=== PATIENT | female | born 1980 | race American Indian/Alaskan Native ===

== ENCOUNTER 2018-06-06 18:08 | Inpatient (IN) | payer BC, MEDICAID ==
--- NOTE | 2018-06-06 18:36 | C.PDOC ---
History Of Present Illness 37 y/o female presents to the ER for evaluation of complete facial numbness and tingling sensation in the left upper and lower extremities which occurred when she woke up at 2 am today. Patient states that she was walking towards her left side. She went back to sleep, woke up again, and the symptoms resolved. She reports that this is the first time she had these symptoms. She went to see her PMD at [facility] and they recommended that she come to the ER. She notes that she has been experiencing a mild headache for about the past 1 hour. Otherwise, she denies having sudden onset of headache, worst headache of life, slurred speech, and weakness. Of note, patient has history of pre- eclampsia which resolved after her . Time Seen by Provider: 06/06/18 18:35 Chief Complaint (Nursing): Weakness/Neurological Deficit History Per: Patient History/Exam Limitations: no limitations Onset/Duration Of Symptoms: Hrs Current Symptoms Are (Timing): Still Present Severity: Moderate Past Medical History Reviewed: Historical Data, Nursing Documentation, Vital Signs Vital Signs: Last Vital Signs Temp 97.9 F 06/06/18 23:50 Pulse 62 06/06/18 23:50 Resp 20 06/06/18 23:50 BP 109/64 06/06/18 23:50 Pulse Ox 96 06/06/18 23:50 - Medical History PMH: No Chronic Diseases Other Surgeries: Hx of surgeries - [facility] Procedures BILAT TUBAL DESTRUCT NEC (03/12/14) Family History: States: No Known Family Hx - Social History Hx Alcohol Use: No Hx Substance Use: No - Immunization History Hx Tetanus Toxoid Vaccination: Yes Hx Influenza Vaccination: No Hx Pneumococcal Vaccination: No Review Of Systems Except As Marked, All Systems Reviewed And Found Negative. Constitutional: Negative for: Fever, Chills Gastrointestinal: Negative for: Nausea, Vomiting Neurological: Positive for: Headache. Negative for: Weakness Physical Exam - Physical Exam Appears: Non-toxic, No Acute Distress Skin: Normal Color, Warm, Dry Head: Atraumatic, Normacephalic Eye(s): bilateral: Normal Inspection Nose: Normal Oral Mucosa: Moist Neck: Supple Chest: Symmetrical Cardiovascular: Rhythm Regular Respiratory: Normal Breath Sounds, No Rales, No Rhonchi, No Wheezing Gastrointestinal/Abdominal: Normal Exam, Soft, No Tenderness, No Guarding, No Rebound Neurological/Psych: Oriented x3, Normal Speech ED Course And Treatment - Laboratory Results Result Diagrams: 06/06/18 18:39 06/06/18 18:39 O2 Sat by Pulse Oximetry: 99 (RA) Pulse Ox Interpretation: Normal NIHSS Stroke Scale 2 - How Severe is the Stroke Level of Consciousness: 0=Alert LOC to Questions: 0=Both comments correct LOC to commands: 0=Obeys both correctly Best Gaze: 0=Normal Visual: 0=No visual loss Facial: 0=Normal Motor Arm - Left: 0=No drift Motor Arm - Right: 0=No drift Motor Leg - Left: 0=No drift Motor Leg - Right: 0=No drift Limb Ataxia: 0=Absent Sensory: 0=Normal Best Language: 0=No aphasia Dysarthia: 0=Normal articulation Extinction & Inattention (Neglect): 0=Normal, no object Score: 0 rTPA Inclusion/Exclusion - Inclusion Criteria for Altepase Patient is 18 years or Older: Yes The Clinical Diagnosis of Ischemic Stroke That is Causing a Potentially Disabling Neurological Deficit: No Time of Onset is Well Established to be Less Than 270 Minute Before Treatment Would Begin: No Risk/Benefit Discussed With Patient/Family Member Present: Yes Medical Decision Making Medical Decision Making: Code stroke called by earlier team given sent by PMD for stroke w/u. I evaluated pt and found that symptoms had fully resolved. Likely TIA. Plan: --Labs --ECG --CT- Head --CXR --Aspirin PO --Reglan IV --IV Fluids Updates: Case discussed with , neurologist, who is requesting an order for MRI - Brain for tomorrow. Case also discussed with Dr. Bustillo who accepts admission and reccomends ASA. ASA ordered. Disposition - Disposition Disposition: HOSPITALIZED Disposition Time: 22:45 Condition: GOOD - Clinical Impression Clinical Impression: Stroke-like symptoms - Scribe Statement The provider has reviewed the documentation as recorded by the Laurel Hernandez Provider Attestation: All medical record entries made by the Seferinoibhalle were at my direction and personally dictated by me. I have reviewed the chart and agree that the record accurately reflects my personal performance of the history, physical exam, medical decision making, and the department course for this patient. I have also personally directed, reviewed, and agree with the discharge instructions and disposition.
[2018-06-06 18:46] LABS: BASO % 0.6 % (0.0-2.0); EOS % 0.5 % (0.0-4.0); HEMOGLOBIN 11.8 g/dL (11.0-16.0); LYMPH # 2.3 K/uL (1.0-4.3); LYMPH % 51.4 % (20.0-40.0); MEAN CELL VOLUME 87.9 fL (81.0-99.0); MEAN CORPUSCULAR HEMOGLOBIN 29.3 pg (27.0-31.0); MEAN CORPUSCULAR HGB CONC 33.4 g/dL (33.0-37.0); MEAN PLATELET VOLUME 8.8 fL (7.2-11.7); MONO # 0.5 K/uL (0.0-0.8); MONO % 10.7 % (0.0-10.0); NEUT # 1.7 K/uL (1.8-7.0); NEUT % 36.8 % (50.0-75.0); NRBC % 0.1 % (0.0-2.0); RBC 4.04 Mil/uL (3.80-5.20); WHITE BLOOD COUNT 4.5 K/uL (4.8-10.8)
[2018-06-06 19:00] LABS: ALB/GLOB RATIO 1.3 (1.0-2.1); ALBUMIN 4.5 g/dL (3.5-5.0); ALT/SGPT 22 U/L (9-52); AST/SGOT 20 U/L (14-36); BLOOD UREA NITROGEN 9 mg/dL (7-17); GFR NON-AFRICAN AMERICAN > 60; HDL CHOLESTEROL 98 mg/dL (30-70)
[2018-06-06 19:10] LABS: LDL CHOLESTEROL 105 mg/dL (0-129)
[2018-06-06] MEDS ORDERED: Sodium Chloride 0.9% 1,000 ML ONE (20:11)
[2018-06-06] MEDS: Sodium Chloride 0.9% 1,000 ML IV SCH (20:17)
[2018-06-07 01:01] VITALS: RESP 20
[2018-06-07] MEDS: Sodium Chloride 0.9% 1,000 ML IV SCH (05:29)
--- NOTE | 2018-06-07 07:05 | CT ---
Date of service: 06/06/2018 PROCEDURE: CT HEAD WITHOUT CONTRAST. HISTORY: Code Stroke COMPARISON: None available. TECHNIQUE: Axial computed tomography images were obtained through the head/brain without intravenous contrast. Radiation dose: Total exam DLP = 948 mGy-cm. This CT exam was performed using one or more of the following dose reduction techniques: Automated exposure control, adjustment of the mA and/or kV according to patient size, and/or use of iterative reconstruction technique. FINDINGS: HEMORRHAGE: No intracranial hemorrhage. BRAIN: No mass effect or edema. No atrophy or chronic microvascular ischemic changes. Punctate hypodensity in the left basal ganglia on series 4, image 18 may represent a prominent perivascular space. VENTRICLES: Unremarkable. No hydrocephalus. CALVARIUM: Unremarkable. PARANASAL SINUSES: Unremarkable as visualized. No significant inflammatory changes. MASTOID AIR CELLS: Unremarkable as visualized. No inflammatory changes. OTHER FINDINGS: None. IMPRESSION: No acute intracranial hemorrhage. Punctate hypodensity in the left basal ganglia on series 4, image 18 may represent a prominent perivascular space. If symptoms persists, consider correlation with MRI. These findings were preliminarily reported at 6:52 p.m. on 06/06/[address] Macho Fuchs from [facility].
[2018-06-07 08:16] VITALS: O2SAT 100
--- NOTE | 2018-06-07 08:54 | RAD ---
Date of service: 06/06/2018 HISTORY: Code Stroke COMPARISON: No prior. FINDINGS: LUNGS: The lungs are well inflated and clear. PLEURA: No significant pleural effusion identified, no pneumothorax apparent. CARDIOVASCULAR: Normal. OSSEOUS STRUCTURES: No significant abnormalities. VISUALIZED UPPER ABDOMEN: Normal. OTHER FINDINGS: None. IMPRESSION: No active pulmonary disease.
--- NOTE | 2018-06-07 09:57 | MRI ---
Date of service: 06/07/2018 PROCEDURE: MRI BRAIN WITHOUT CONTRAST HISTORY: TIA w/u COMPARISON: Noncontrast head CT from 06/06/2018. TECHNIQUE: Multiplanar, multisequence MR images of the brain were obtained without intravenous contrast enhancement. FINDINGS: HEMORRHAGE: None DWI: No evidence of an acute or early subacute infarction. BRAIN PARENCHYMA: There is an old lacunar infarction in the right cerebellar hemisphere. There is an ovoid T2/FLAIR hyperintense foci in the right frontal deep white matter. There are few T2/FLAIR hyperintense foci in the left paramedian cerebellar hemisphere. There is no mass, mass effect or abnormal extra-axial fluid collection. The midline sagittal structures are normal VENTRICLES: There is mild age advanced global parenchymal volume loss and proportionate enlargement of the ventricles and cortical sulci. CRANIUM: There is normal bone marrow signal pattern. ORBITS: Grossly unremarkable. PARANASAL SINUSES/MASTOIDS: Mild mucosal thickening in the paranasal sinuses and trace mastoid effusions the VASCULAR SYSTEM: There are normal signal voids in the larger intracranial arteries. OTHER FINDINGS: None. IMPRESSION: 1. No acute intracranial abnormality. Specifically, no evidence for acute infarction. 2. 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 3. Scattered foci of presumable gliosis in the right deep frontal white matter and left paramedian cerebellar hemisphere.
--- NOTE | 2018-06-07 11:04 | CARD ---
APPROVED REPORT Date of service: 06/06/2018 EKG Measurement Heart [id number] <Conclusion> Normal sinus rhythm Nonspecific T wave abnormality Abnormal ECG
--- NOTE | 2018-06-07 11:06 | CP.PCM.HP ---
History of Present Illness - History of Present Illness History of Present Illness: 37 Y OLD F WAKE UP IN MIDLE OF NIGHT FEELING NUMNESS FACE LSIDE AND UPPER EXT STILL HAS NUMNESS MRI DON OLD INFARCTION Present on Admission - Present on Admission Any Indicators Present on Admission: No Review of Systems - Review of Systems Systems not reviewed;Unavailable: Acuity of Condition - Constitutional Constitutional: As Per HPI - EENT Eyes: As Per HPI Ears: As Per HPI Nose/Mouth/Throat: As Per HPI - Breasts Breasts: As Per HPI - Cardiovascular Cardiovascular: As Per HPI - Respiratory Respiratory: As Per HPI - Gastrointestinal Gastrointestinal: As Per HPI - Genitourinary Genitourinary: As Per HPI - Reproductive: Female Reproductive:Female: As Per HPI - Menstruation Menstruation: As Per HPI - Musculoskeletal Musculoskeletal: As Per HPI - Integumentary Integumentary: As Per HPI - Neurological Neurological: Numbness Additional comments: LSIDE FACE AND UPPER EXT - Psychiatric Psychiatric: As Per HPI - Endocrine Endocrine: As Per HPI - Hematologic/Lymphatic Hematologic: As Per HPI Past Patient History - Past Medical History & Family History Past Medical History?: Yes - Past Social History Smoking Status: Never Smoked - CARDIAC Other/Comment: PREECLAMPSIA - RENAL Other/Comment: ACUTE KIDNEY DISEASE - MUSCULOSKELETAL/RHEUMATOLOGICAL Hx Falls: No - PSYCHIATRIC Hx Substance Use: No - SURGICAL HISTORY Hx Surgeries: Yes Hx Tubal Ligation: Yes Other/Comment: FIBROID REMOVAL - ANESTHESIA Hx Anesthesia: Yes Hx Anesthesia Reactions: No Hx Malignant Hyperthermia: No Meds Allergies/Adverse Reactions: Allergies Allergy/AdvReac Type Severity Reaction Status Date / Time Penicillins Allergy Verified 06/06/18 18:22 Physical Exam - Constitutional Appears: No Acute Distress - Head Exam Head Exam: ATRAUMATIC - Eye Exam Eye Exam: Normal appearance - ENT Exam ENT Exam: Mucous Membranes Moist - Respiratory Exam Respiratory Exam: Clear to Auscultation Bilateral - Cardiovascular Exam Cardiovascular Exam: REGULAR RHYTHM - GI/Abdominal Exam GI & Abdominal Exam: Normal Bowel Sounds - Extremities Exam Extremities exam: Positive for: normal inspection - Back Exam Back exam: NORMAL INSPECTION - Neurological Exam Neurological exam: Alert, Oriented x3 Additional comments: DEC SENSATION L SIDE FACE AND UPPER EXT - Psychiatric Exam Psychiatric exam: Normal Mood - Skin Skin Exam: Normal Color Results - Vital Signs Recent Vital Signs: Last Vital Signs Temp 98.5 F 06/07/18 07:25 Pulse 66 06/07/18 09:00 Resp 20 06/07/18 07:25 BP 109/67 06/07/18 07:25 Pulse Ox 100 06/07/18 07:25 - Labs Result Diagrams: 06/06/18 18:39 06/06/18 18:39 Labs: Laboratory Results - last 24 hr 06/06/18 06/06/18 06/06/18 18:30 18:39 18:39 WBC 4.5 L RBC 4.04 Hgb 11.8 Hct 35.5 MCV 87.9 MCH 29.3 MCHC 33.4 RDW 15.0 H Plt Count 193 MPV 8.8 Neut % (Auto) 36.8 L Lymph % (Auto) 51.4 H Dod[place] % (Auto) 10.7 H Eos % (Auto) 0.5 Baso % (Auto) 0.6 Neut # (Auto) 1.7 L Lymph # (Auto) 2.3 [place] # (Auto) 0.5 Eos # (Auto) 0.0 Baso # (Auto) 0.0 PT 11.0 INR 1.0 APTT 34 Sodium Potassium Chloride Carbon Dioxide Anion Gap BUN Creatinine Est GFR ( Amer) Est GFR (Non-Af Amer) POC Glucose (mg/dL) 104 Random Glucose Hemoglobin A1c Calcium Total Bilirubin AST ALT Alkaline Phosphatase Troponin I Total Protein Albumin Globulin Albumin/Globulin Ratio Triglycerides Cholesterol LDL Cholesterol Direct HDL Cholesterol Blood Type Antibody Screen 06/06/18 06/06/18 06/06/18 18:39 18:39 18:39 WBC RBC Hgb Hct MCV MCH MCHC RDW Plt Count MPV Neut % (Auto) Lymph % (Auto) Dod[place] % (Auto) Eos % (Auto) Baso % (Auto) Neut # (Auto) Lymph # (Auto) Dod[place] # (Auto) Eos # (Auto) Baso # (Auto) PT INR APTT Sodium 141 Potassium 3.7 Chloride 104 Carbon Dioxide 26 Anion Gap 15 BUN 9 Creatinine 1.0 Est GFR ( Amer) > 60 Est GFR (Non-Af Amer) > 60 POC Glucose (mg/dL) Random Glucose 100 Hemoglobin A1c 5.5 Calcium 10.0 Total Bilirubin 0.8 AST 20 ALT 22 Alkaline Phosphatase 36 L Troponin I < 0.0120 Total Protein 7.8 Albumin 4.5 Globulin 3.4 Albumin/Globulin Ratio 1.3 Triglycerides 58 Cholesterol 224 H LDL Cholesterol Direct 105 HDL Cholesterol 98 H Blood Type B POSITIVE Antibody Screen Negative Assessment & Plan - Assessment and Plan (Free Text) Assessment: AC NUMNESS L SIDE FACE AND UPPER EXT OLD LACUNAR INARCTION Plan: CONT MED AND NEURO EVALUATION - Date & Time Date: 06/07/18 Time: 11:10
--- NOTE | 2018-06-07 13:05 | CP.PCM.CON ---
History of Present Illness - History of Present Illness History of Present Illness: PGY-2 neurology consult note for Dr Welsh. Mrs Hernandez is a 37 year old female with a PMHx of preeclampsia who presented with facial numbness b/l and tingling in her left upper and left lowe extremity which occurred in the middle of the night. Patient stated she then went to sleep and upon waking again the symptoms had completely resolved. However she was urged to come to the ED by her PMD. She denied having sudden onset of headache, worst headache of life, slurred speech, and weakness. NIHSS in the ED was 0. PMHx: Preeclampsia PSHx: bilateral tubal surgery Allergies: PCN - rash Home Meds: none SocialHx: Denies tobacco, alcohol, illicit substances FamHx: Brother - CAD Review of Systems - Constitutional Constitutional: absent: Fever - EENT Eyes: absent: Blind Spots, Blurred Vision, Change in Vision - Cardiovascular Cardiovascular: absent: Chest Pain - Respiratory Respiratory: absent: Dyspnea - Gastrointestinal Gastrointestinal: absent: Abdominal Pain - Genitourinary Genitourinary: absent: Dysuria - Neurological Neurological: absent: Abnormal Speech, Dizziness Past Patient History - Past Medical History & Family History Past Medical History?: Yes - Past Social History Smoking Status: Never Smoked - CARDIAC Other/Comment: PREECLAMPSIA - RENAL Other/Comment: ACUTE KIDNEY DISEASE - MUSCULOSKELETAL/RHEUMATOLOGICAL Hx Falls: No - PSYCHIATRIC Hx Substance Use: No - SURGICAL HISTORY Hx Surgeries: Yes Hx Tubal Ligation: Yes Other/Comment: FIBROID REMOVAL - ANESTHESIA Hx Anesthesia: Yes Hx Anesthesia Reactions: No Hx Malignant Hyperthermia: No Meds Allergies/Adverse Reactions: Allergies Allergy/AdvReac Type Severity Reaction Status Date / Time Penicillins Allergy Verified 06/06/18 18:22 - Medications Medications: Current Medications Aspirin (Aspirin Chewable) 81 mg PO DAILY [facility] Last Admin: 06/07/18 10:47 Dose: 81 mg Sodium Chloride (Sodium Chloride 0.9%) 1,000 mls @ 100 mls/hr IV .Q10H DONI Last Admin: 06/07/18 05:29 Dose: 100 mls/hr Rosuvastatin Calcium (Crestor) 10 mg PO HS DONI Last Admin: 06/06/18 22:38 Dose: 10 mg Physical Exam - Constitutional Appears: Well, Non-toxic, No Acute Distress - Head Exam Head Exam: ATRAUMATIC, NORMAL INSPECTION - Eye Exam Eye Exam: EOMI, PERRL - ENT Exam ENT Exam: Mucous Membranes Moist - Neck Exam Neck exam: Positive for: Normal Inspection - Respiratory Exam Respiratory Exam: Clear to Auscultation Bilateral, NORMAL BREATHING PATTERN. absent: Rales, Rhonchi, Wheezes - Cardiovascular Exam Cardiovascular Exam: REGULAR RHYTHM, +S1, +S2. absent: Bradycardia, Tachycardia , JVD, Systolic Murmur - GI/Abdominal Exam GI & Abdominal Exam: Normal Bowel Sounds, Soft. absent: Distended, Firm, Tenderness - Neurological Exam Neurological exam: Alert, CN II-XII Intact, Oriented x3 - Expanded Neurological Exam Expanded Patient oriented to: person, place, time Speech: Fluid Speech Cranial nerves: EOM's Intact: Normal, Facial Sensation: Normal, Gag Reflex: Normal Ataxia: No Cerebellar Function: Finger to Nose: Normal, Heel to Cuellar: Normal, Romberg: Normal Upper motor neuron: Babinski Sign: Normal, Wali Neglect: Normal, Pronator Drift : Normal, Sensory Extinction: Normal Sensory exam: Lower Extremity 2 Point Discrimination: Normal, Upper Extremity 2 Point Discrimination: Normal Neuro motor strength exam: Left Upper Extremity: 5, Right Upper Extremity: 5, Left Lower Extremity: 5, Right Lower Extremity: 5 DTR: Achilles Tendon Left: 2+, Achilles Tendon Right: 2+, Patellar Left: 2+, Patellar Right: 2+ Coma Scale Eye Opening: SPONTANEOUS Coma Scale Motor Response: OBEYS COMMANDS Coma Scale Verbal: Oriented Coma Scale Total: 15 Results - Vital Signs Recent Vital Signs: Last Vital Signs Temp 98.5 F 06/07/18 07:25 Pulse 66 06/07/18 09:00 Resp 20 06/07/18 07:25 BP 109/67 06/07/18 07:25 Pulse Ox 100 06/07/18 07:25 - Labs Result Diagrams: 06/06/18 18:39 06/06/18 18:39 Labs: Laboratory Results - last 24 hr 06/06/18 06/06/18 06/06/18 18:30 18:39 18:39 WBC 4.5 L RBC 4.04 Hgb 11.8 Hct 35.5 MCV 87.9 MCH 29.3 MCHC 33.4 RDW 15.0 H Plt Count 193 MPV 8.8 Neut % (Auto) 36.8 L Lymph % (Auto) 51.4 H Trinity % (Auto) 10.7 H Eos % (Auto) 0.5 Baso % (Auto) 0.6 Neut # (Auto) 1.7 L Lymph # (Auto) 2.3 [place] # (Auto) 0.5 Eos # (Auto) 0.0 Baso # (Auto) 0.0 PT 11.0 INR 1.0 APTT 34 Sodium Potassium Chloride Carbon Dioxide Anion Gap BUN Creatinine Est GFR ( Amer) Est GFR (Non-Af Amer) POC Glucose (mg/dL) 104 Random Glucose Hemoglobin A1c Calcium Total Bilirubin AST ALT Alkaline Phosphatase Troponin I Total Protein Albumin Globulin Albumin/Globulin Ratio Triglycerides Cholesterol LDL Cholesterol Direct HDL Cholesterol Blood Type Antibody Screen 06/06/18 06/06/18 06/06/18 18:39 18:39 18:39 WBC RBC Hgb Hct MCV MCH MCHC RDW Plt Count MPV Neut % (Auto) Lymph % (Auto) [place] % (Auto) Eos % (Auto) Baso % (Auto) Neut # (Auto) Lymph # (Auto) [place] # (Auto) Eos # (Auto) Baso # (Auto) PT INR APTT Sodium 141 Potassium 3.7 Chloride 104 Carbon Dioxide 26 Anion Gap 15 BUN 9 Creatinine 1.0 Est GFR ( Amer) > 60 Est GFR (Non-Af Amer) > 60 POC Glucose (mg/dL) Random Glucose 100 Hemoglobin A1c 5.5 Calcium 10.0 Total Bilirubin 0.8 AST 20 ALT 22 Alkaline Phosphatase 36 L Troponin I < 0.0120 Total Protein 7.8 Albumin 4.5 Globulin 3.4 Albumin/Globulin Ratio 1.3 Triglycerides 58 Cholesterol 224 H LDL Cholesterol Direct 105 HDL Cholesterol 98 H Blood Type B POSITIVE Antibody Screen Negative Assessment & Plan - Assessment and Plan (Free Text) Plan: Mrs Hernandez is a 37 year old female with a PMHx of preeclampsia who presented with facial numbness b/l and tingling in her left upper and left lower extremity : Numbness/Tingling -NIHSS on evaluation today 0 -CT head w/o contrast - negative for acute pathology; prominent perivascular space in left basal ganglia -Brain MRI w/o contrast - 1. No acute intracranial abnormality. Specifically, no evidence for acute infarction. 2. 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 3. Scattered foci of presumable gliosis in the right deep frontal white matter and left paramedian cerebellar hemisphere. -It is unusual patient had a old prior infarct in cerebellum at such a young age - possibly some underlying coagulopathy -Patient needs better lipid control - cholesterol 224 and LDL 105 -Continue aspirin 81mg po qd -Continue Crestor 10mg po hs -Patient should follow-up with a neurologist in 2 weeks -Patient should follow-up with a dining room helper for work-up for coagulopathy given she had an old cerebellar infarct at such a young age -Patient is okay to be discharged from neurology standpoint.
--- NOTE | 2018-06-07 15:14 | CP.PCM.PN ---
Subjective - Date & Time of Evaluation Date of Evaluation: 06/07/18 Time of Evaluation: 15:12 - Subjective Subjective: PT SEEN BY NEURO THIS AFTERNOON AND CLEARED FOR D/, WITH OUTPT F/U,, HEME F/U, AND ASA AND STATIN. PER DR. LUEVANO OK TO D/C HOME TODAY AND F/U WITH PMD IN THE OFFICE IN 5-7 DAYS. PT ALREADY HAS AN APPT W PMD ON SUNDAY. ALL MEDS AND F/U INSTRUCTIONS DISCUSSED WITH THE PT. SEE BELOW FOR D/C INFORMATION. NO FURTHER ORDERS. -FOLLOW UP WITH DR. LUEVANO OR YOUR PRIMARY PROVIDER IN THE OFFICE WITHIN 5-7 DAYS---CALL FOR APPOINTMENT TIME. -FOLLOW UP WITH DR. WARREN (NEUROLOGY) IN THE OFFICE IN 2 WEEKS---CALL FOR APPOINTMENT TIME. -YOU NEED TO FOLLOW UP WITH YOUR PRIMARY PROVIDER IN ORDER TO GET A REFERRAL FOR A SCRAP SEPARATOR. ONCE YOU HAVE THE REFERRAL, MAKE AN APPOINTMENT TO SEE THE SPECIALIST. -YOU HAVE BEEN PRESCRIBED 2 MEDICATIONS TO PROTECT YOUR HEART AND BRAIN: 1) ASPIRIN 81 MG---TAKE 1 TABLET BY MOUTH ONCE A DAY---YOU MAY TAKE OVER THE COUNTER (ST. SHEY ASPIRIN; MAC) 2) CRESTOR 10 MG (THIS IS A CHOLESTEROL MEDICATION)---TAKE 1 TABLET BY MOUTH EVERY NIGHT BEFORE BED. -IF YOU HAVE FURTHER CONCERNS OR QUESTIONS, CONTACT DR. LUEVANO. Objective - Vital Signs/Intake and Output Vital Signs (last 24 hours): Temp Pulse Resp BP Pulse Ox 98.5 F 66 20 109/67 100 06/07/18 07:25 06/07/18 09:00 06/07/18 07:25 06/07/18 07:25 06/07/18 07:25 Intake and Output: 06/07/18 06/07/18 06:59 18:59 Intake Total 1000 Balance 1000 - Medications Medications: Current Medications Aspirin (Aspirin Chewable) 81 mg PO DAILY [facility] Last Admin: 06/07/18 10:47 Dose: 81 mg Sodium Chloride (Sodium Chloride 0.9%) 1,000 mls @ 100 mls/hr IV .Q10H DONI Last Admin: 06/07/18 05:29 Dose: 100 mls/hr Rosuvastatin Calcium (Crestor) 10 mg PO HS [facility] Last Admin: 06/06/18 22:38 Dose: 10 mg - Labs Labs: 06/06/18 18:39 06/06/18 18:39 PT 11.0 SECONDS (9.7-12.2) 06/06/18 18:39 INR 1.0 06/06/18 18:39 APTT 34 SECONDS (21-34) 06/06/18 18:39
[2018-06-07 15:38] VITALS: BP 122/76; PULSE 57; TEMP 98.1
== END 2018-06-07 16:53 | disposition home or self-care (01) | DRG 69 ==
LOC: C.ER 18:08 → C.9E 20:03 → C.6T 22:35
PROVIDERS: ADMIT Internal Medicine; ATTEND Internal Medicine
DX: G45.9 Transient cerebral ischemic attack, unspecified (principal); D68.9 Coagulation defect, unspecified; E78.00 Pure hypercholesterolemia, unspecified; N28.9 Disorder of kidney and ureter, unspecified; Z87.59 Personal history of other complications of pregnancy, childbirth and the puerperium; Z98.51 Tubal ligation status; Z82.49 Family history of ischemic heart disease and other diseases of the circulatory system